=== PATIENT | male | born 1955 | race Two or more races ===

== ENCOUNTER 2025-02-26 15:11 | Day surgery (SDC) | payer MEDICARE ==
[~2025-02-26 15:11] MED LIST: Pilocarpine 4% Ophth Soln 15 ML Bot EYERT SCH
[2025-02-26] MEDS: Polymyxin B/Trimethoprim 10 ML Bottle EYERT SCH (15:20)
[2025-02-26] MEDS: Tropicamide 1% Ophth Soln 3 ML Bottle EYERT SCH (15:31)
[2025-02-26] MEDS: Tetracaine HCl/PF 0.5% 4 ML Bottle EYEBOTH SCH (16:02)
[2025-02-26] MEDS: Lidocaine 1% PF 2 ML SDV INJECT SCH (16:19)
[2025-02-26] MEDS: Cefuroxime 10 MG/ML SYRINGE EYERT SCH (16:41)
== END 2025-02-26 16:53 | disposition home or self-care (01) ==
LOC: JD.SDS 15:11
PROVIDERS: ATTEND Ophthalmology
DX: E11.36 Type 2 diabetes mellitus with diabetic cataract (principal); H26.9 Unspecified cataract; E11.22 Type 2 diabetes mellitus with diabetic chronic kidney disease; N18.9 Chronic kidney disease, unspecified; I25.10 Atherosclerotic heart disease of native coronary artery without angina pectoris; Z88.5 Allergy status to narcotic agent; Z79.899 Other long term (current) drug therapy
CPT/HCPCS: A9270-GY; J0697; J3490